=== PATIENT | male | born 1965 | race African-American/Black ===

== ENCOUNTER 2017-06-20 08:07 | Emergency (ER) | payer BC, OTHER ==
[2017-06-20] MEDS ORDERED: Bacitracin Oint 1 GM U/D Packet TOP ONE (08:34)
[2017-06-20] MEDS ORDERED: Ketorolac 60 MG/2 ML SDV IM ONE (08:34)
--- NOTE | 2017-06-20 08:38 | EDM.PDOC ---
ED HPI GENERAL MEDICAL PROBLEM - General Chief Complaint: Lower Extremity Injury/Pain Stated Complaint: LEFT LEG INJURY Time Seen by Provider: 06/20/17 08:31 - History of Present Illness INITIAL COMMENTS - FREE TEXT/NARRATIVE: HISTORY AND PHYSICAL: History of present illness: The patient is a 51-year-old male who presents from work in the [employer] after he slipped and fell impacting his right leg and twisting his left lower leg. Patient says he did not pass out or black out and has no head neck or discrete back pain. Prior to these events he was in his usual state of health having a normal day. The patient complains of a mild abrasion to the anterior aspect of his right leg but there is no bony or calf pain. He is mostly here due to discomfort at the lateral aspect of his left lower leg and he thinks there is some swelling there. He has no weakness or neurosensory changes and there is no distal ankle or foot pain and no proximal knee or hip pain. Review of systems: As per history of present illness and below otherwise all systems reviewed and negative. Past medical history: As per history of present illness and as reviewed below otherwise noncontributory. Surgical history: As per history of present illness and as reviewed below otherwise noncontributory. Social history: No reported history of drug or alcohol abuse. Family history: As per history of present illness and as reviewed below otherwise noncontributory. Physical exam: Gen.: Well-developed overweight male who is nontoxic and vital signs have been reviewed by me HEENT: Atraumatic, normocephalic, negative for conjunctival pallor or scleral icterus, mucous membranes moist, throat clear, neck supple, nontender, trachea midline. Lungs: Clear to auscultation, breath sounds equal bilaterally, chest nontender. Heart: S1S2, regular rate and rhythm no overt murmurs Abdomen: Soft, nondistended, nontender. NABS Pelvis: Stable nontender. No lateral hip tenderness Genitourinary: Deferred. Rectal: Deferred. Extremities: Atraumatic appearing throughout with the exception of a superficial longitudinal abrasion on the anterior aspect of the left proximal leg without any soft tissue swelling no palpable bony deformities and no gross soft tissue swelling or ecchymosis. There is tenderness appreciated at the lateral aspect of the left lower leg but there is no abrasion ecchymosis or diffuse soft tissue swelling. There are no palpable bony deformities in the left lower leg and there is no distal ankle or foot tenderness or proximal knee or thigh tenderness. The legs are, negative for cords or calf pain. There is no gross calf or leg asymmetry appreciated Neurovascular unremarkable. Neuro: Awake, alert, oriented. Cranial nerves II through XII unremarkable. Cerebellum unremarkable. Motor and sensory unremarkable throughout. Exam nonfocal. Diagnostics: X-ray left tib-fib Therapeutics: Wound care with cleansing and bacitracin to right leg abrasion, Toradol Impression: Bilateral leg contusions Definitive disposition and diagnosis as appropriate pending reevaluation and review of above. left lower leg Pain Score (Numeric/FACES): 7 - Related Data Allergies Allergy/AdvReac Type Severity Reaction Status Date / Time No Known Allergies Allergy Verified 06/20/17 08:26 Home Meds: Home Meds Lisinopril 5 mg PO DAILY 06/20/17 [History] metFORMIN [Glucophage XR] 500 mg PO BIDMEALS 06/20/17 [History] Past Medical History HEENT History: Reports: None Cardiovascular History: Reports: Hypertension Respiratory History: Reports: None Gastrointestinal History: Reports: None Genitourinary History: Reports: None Musculoskeletal History: Reports: None Neurological History: Reports: None Psychiatric History: Reports: None Endocrine/Metabolic History: Reports: Diabetes, Type II Hematologic History: Reports: None Immunologic History: Reports: None Oncologic (Cancer) History: Reports: None Dermatologic History: Reports: None - Infectious Disease History Infectious Disease History: Reports: None Social & Family History - Family History Family Medical History: Noncontributory - Tobacco Use Smoking Status *Q: Never Smoker - Caffeine Use Caffeine Use: Reports: Coffee - Recreational Drug Use Recreational Drug Use: No Review of Systems - Review of Systems Review Of Systems: ROS reveals no pertinent complaints other than HPI. ED EXAM, GENERAL - Physical Exam Exam: See Below (See dictation) Course - Vital Signs Last Recorded V/S: Last Vital Signs Temp 36.2 C 06/20/17 08:27 Pulse 83 06/20/17 08:27 Resp 18 06/20/17 08:27 BP 174/82 H 06/20/17 08:27 Pulse Ox 96 06/20/17 08:27 - Orders/Labs/Meds Orders: Active Orders 24 hr Category Date Time Status Tibia Fibula Lt [CR] Stat Exams 06/20/17 08:35 Taken Meds: Medications Discontinued Medications Generic Name Dose Route Start Last Admin Trade Name Alexei PRN Reason Stop Dose Admin Bacitracin 1 dose 06/20/17 08:34 06/20/17 08:56 Bacitracin Oint 1 Gm TOP 06/20/17 08:35 1 dose ONETIME ONE Administration Ketorolac Tromethamine 60 mg 06/20/17 08:34 06/20/17 08:57 Toradol IM 06/20/17 08:35 60 mg ONETIME ONE Administration Departure - Departure Time of Disposition: 10:04 Disposition: Home, Self-Care 01 Condition: Good Clinical Impression: Contusion of leg Qualifiers: Encounter type: initial encounter Laterality: unspecified laterality Qualified Code(s): S80.10XA - Contusion of unspecified lower leg, initial encounter - Discharge Information Referrals: PCP,Not In Area [Primary Care Provider] - Forms: ED Department Discharge Additional Instructions: The following information is given to patients seen in the emergency department who are being discharged to home. This information is to outline your options for follow-up care. We provide all patients seen in our emergency department with a follow-up referral. The need for follow-up, as well as the timing and circumstances, are variable depending upon the specifics of your emergency department visit. If you don't have a primary care physician on staff, we will provide you with a referral. We always advise you to contact your personal physician following an emergency department visit to inform them of the circumstance of the visit and for follow-up with them and/or the need for any referrals to a consulting specialist. The emergency department will also refer you to a specialist when appropriate. This referral assures that you have the opportunity for followup care with a specialist. All of these measure are taken in an effort to provide you with optimal care, which includes your followup. Under all circumstances we always encourage you to contact your private physician who remains a resource for coordinating your care. When calling for followup care, please make the office aware that this follow-up is from your recent emergency room visit. If for any reason you are refused follow-up, please contact the [facility] emergency department at and ask to speak to the emergency department charge nurse. [facility] Primary care- Internal Medicine and [facility] [address] [place] [address] Ice and elevate the area and use the prescribed diclofenac as needed for discomfort. Please call and follow-up with one of our clinic providers for further care and evaluation and return to ER as needed and as discussed - My Orders Last 24 Hours: My Active Orders 06/20/17 08:35 Tibia Fibula Lt [CR] Stat - Assessment/Plan Last 24 Hours: My Active Orders 06/20/17 08:35 Tibia Fibula Lt [CR] Stat
--- NOTE | 2017-06-20 14:51 | CR ---
EXAM DATE: 06/20/17 PATIENT'S AGE: 51 Patient: EZIO AMADOR Facility: [place], [place] Site . Site : [id number] Study: XRay Extremity Left TIB FIB [id number]/[id number] 9:25:14 AM Ordering Physician: Arnaud Saenz Final Report: HISTORY: Fall. Lower leg pain. Technique: Left tibia and fibula 2 views. Comparison: None. Findings: No acute fracture. No dislocation. Chronic ossicle adjacent to the tibial tubercle consistent with remote Kasson-Schlatter disease. Mild degenerative arthrosis of the ankle joint. Spurring of the medial malleolus likely from remote ligamentous or retinacular injury. Small Achilles insertion enthesophyte. Small plantar aponeurosis origin enthesophyte. No radiopaque foreign body. Impression: No acute findings. Dictated by Ugo Esqueda MD @ Jun 20 2017 9:53AM (Electronic Signature) Report Signed by Proxy. ROSY
== END 2017-06-20 10:26 | disposition home or self-care (01) ==
LOC: MW.ED 08:07
DX: S80.12XA Contusion of left lower leg, initial encounter (principal); S80.11XA Contusion of right lower leg, initial encounter; I10 Essential (primary) hypertension; E11.9 Type 2 diabetes mellitus without complications; Z79.899 Other long term (current) drug therapy; Z79.84 Long term (current) use of oral hypoglycemic drugs; W01.0XXA Fall on same level from slipping, tripping and stumbling without subsequent striking against object, initial encounter
CPT/HCPCS: 73590; 96372; 99283; J1885